=== PATIENT | male | born 1975 | race Native Hawaiian/Other Pacific Islander ===

== ENCOUNTER 2017-12-31 18:52 | Emergency (ER) | payer OTHER ==
[~2017-12-31] VITALS: Ht 188 cm; Wt 86.2 kg
[2017-12-31 19:00] VITALS: BP 135/81; TEMP 97.3
== END 2017-12-31 19:22 | disposition home or self-care (01) ==
LOC: ED 18:52
DX: K08.89 Other specified disorders of teeth and supporting structures (principal); K02.9 Dental caries, unspecified
CPT/HCPCS: 99281

== ENCOUNTER 2018-10-29 01:52 | Emergency (ER) | payer OTHER ==
[~2018-10-29] VITALS: Ht 188 cm; Wt 86.2 kg
[2018-10-29 02:19] LABS: PLATELET COUNT 456 K/uL (142-355)
[2018-10-29 04:03] LABS: POTASSIUM 3.9 mmol/L (3.6-5.2); SODIUM 136 mmol/L (136-145)
[2018-10-29 11:40] VITALS: BP 109/71; TEMP 98.1
== END 2018-10-29 12:00 | disposition other institution (70) ==
LOC: ED 01:52
PROVIDERS: Internal Medicine
DX: R44.3 Hallucinations, unspecified (principal); F15.10 Other stimulant abuse, uncomplicated
CPT/HCPCS: 80053; 80307; 80320; 80329; 81000; 85027; 93005; 99285

== ENCOUNTER 2019-04-03 11:39 | Emergency (ER) | payer OTHER ==
[~2019-04-03] VITALS: Ht 182.9 cm; Wt 79.4 kg
[2019-04-03 11:45] VITALS: TEMP 97.7
[2019-04-03 12:49] VITALS: BP 155/79
== END 2019-04-03 12:49 | disposition home or self-care (01) ==
LOC: ED 11:39
DX: S71.101A Unspecified open wound, right thigh, initial encounter (principal); L08.9 Local infection of the skin and subcutaneous tissue, unspecified
CPT/HCPCS: 96372; 99283; J0696

== ENCOUNTER 2019-08-22 17:29 | Emergency (ER) | payer OTHER ==
[~2019-08-22] VITALS: Ht 182.9 cm; Wt 77.1 kg
[2019-08-22 21:24] LABS: PLATELET COUNT 398 K/uL (142-355)
[2019-08-22 21:39] LABS: POTASSIUM 3.7 mmol/L (3.6-5.2)
[2019-08-23 02:30] VITALS: BP 119/75; TEMP 98.1
== END 2019-08-23 04:45 | disposition other institution (70) ==
LOC: ED 17:29
PROVIDERS: Family Medicine
DX: R45.851 Suicidal ideations (principal); F20.89 Other schizophrenia; R00.0 Tachycardia, unspecified
CPT/HCPCS: 51702; 80053; 80307; 80320; 80329; 81000; 85027; 93005; 96372; 99285; J1200; J1630; J3486

== ENCOUNTER 2020-03-21 17:54 | Emergency (ER) | payer OTHER ==
[~2020-03-21] VITALS: Ht 182.9 cm; Wt 74.8 kg
[2020-03-21 18:38] LABS: PLATELET COUNT 534 K/uL (142-355)
[2020-03-21 21:19] VITALS: TEMP 98.1
[2020-03-21 21:25] VITALS: BP 116/84
== END 2020-03-21 21:19 | disposition home or self-care (01) ==
LOC: ED 17:54
PROVIDERS: Hospitalist
DX: S05.01XA Injury of conjunctiva and corneal abrasion without foreign body, right eye, initial encounter (principal); I47.1 Supraventricular tachycardia; F15.10 Other stimulant abuse, uncomplicated
CPT/HCPCS: 36415; 80048; 80307; 80320; 81000; 82550; 84484; 85027; 85379; 93005; 96360; 96375; 96376; 99284; J3490

== ENCOUNTER 2020-05-20 22:08 | Emergency (ER) | payer OTHER ==
[~2020-05-20] VITALS: Ht 182.9 cm; Wt 74.8 kg
[2020-05-20 22:53] LABS: PLATELET COUNT 501 K/uL (142-355)
[2020-05-20 23:03] LABS: PARTIAL THROMBOPLASTIN TIME 25.9 SECONDS (24.5-33.6)
[2020-05-21 01:34] VITALS: BP 120/85; TEMP 98.4
== END 2020-05-21 01:34 | disposition home or self-care (01) ==
LOC: ED 22:08
PROVIDERS: Hospitalist
DX: R10.13 Epigastric pain (principal); K52.89 Other specified noninfective gastroenteritis and colitis; R11.2 Nausea with vomiting, unspecified
CPT/HCPCS: 36415; 80053; 80307; 80320; 82150; 82550; 83690; 84484; 85027; 85610; 85730; 93005; 96360; 96365; 96375; 99284; J1170; J1885; J2405; J3490; Q9963

== ENCOUNTER 2020-05-21 03:40 | Emergency (ER) | payer OTHER ==
[~2020-05-21] VITALS: Ht 182.9 cm; Wt 74.8 kg
[2020-05-21 04:10] VITALS: BP 102/76; TEMP 98.4
== END 2020-05-21 04:10 | disposition home or self-care (01) ==
LOC: ED 03:40
DX: K52.89 Other specified noninfective gastroenteritis and colitis (principal); R10.84 Generalized abdominal pain; R11.2 Nausea with vomiting, unspecified

== ENCOUNTER 2020-06-07 15:43 | Inpatient (IN) | payer OTHER ==
[~2020-06-07] VITALS: Ht 182.9 cm; Wt 82.7 kg
[2020-06-07 15:50] VITALS: BP 117/79; TEMP 98.2
[2020-06-07 16:31] LABS: PLATELET COUNT 459 K/uL (142-355)
[2020-06-07 16:39] VITALS: BP 114/93
[2020-06-07 16:46] LABS: POTASSIUM 4.6 mmol/L (3.6-5.2)
[2020-06-07 17:24] LABS: PARTIAL THROMBOPLASTIN TIME 25.8 SECONDS (24.5-33.6)
[2020-06-07 17:34] VITALS: BP 121/90
[2020-06-07 18:21] VITALS: BP 114/83
[2020-06-07 18:56] VITALS: BP 92/74
[2020-06-07 21:30] VITALS: BP 109/71; TEMP 97.8; Ht 182.9 cm; Wt 82.7 kg
[2020-06-08] VITALS: BP 95/64; TEMP 97.9
[2020-06-08 04:00] VITALS: BP 119/81; TEMP 97.1
[2020-06-08 07:22] VITALS: BP 115/97; TEMP 96.9
[2020-06-08 07:44] LABS: PLATELET COUNT 395 K/uL (142-355)
[2020-06-08 08:08] LABS: POTASSIUM 4.9 mmol/L (3.6-5.2)
[2020-06-08 12:00] VITALS: BP 125/96; TEMP 96.4
[2020-06-08 16:00] VITALS: BP 127/95; TEMP 96.9
== END 2020-06-08 22:15 | disposition short-term general hospital (02) | DRG 187 ==
LOC: ED 15:43 → MED/SURG 20:00 → ICU 06-08 20:04 → UNDODEPER 06-08 20:50 → ICU 06-08 22:15
PROVIDERS: Emergency Medicine Emergency Medical Services; ADMIT Internal Medicine Endocrinology, Diabetes & Metabolism; ATTEND Internal Medicine Endocrinology, Diabetes & Metabolism
DX: J90 Pleural effusion, not elsewhere classified (principal); R18.8 Other ascites; J98.11 Atelectasis; J43.9 Emphysema, unspecified; R91.1 Solitary pulmonary nodule; D72.828 Other elevated white blood cell count; Z72.0 Tobacco use; F15.10 Other stimulant abuse, uncomplicated; I11.9 Hypertensive heart disease without heart failure
CPT/HCPCS: 36415; 36600; 80053; 80074; 80307; 82550; 82805; 83880; 84484; 85027; 85379; 85610; 85730; 87040; 87502; 87635; 93005; 94664; 94760; 96365; 96366; 96372; 96375; 99284; J0282; J0696; J1644; J1885; J1940; J2270; Q9963; U0003

== ENCOUNTER 2020-07-06 22:22 | Emergency (ER) | payer OTHER ==
[~2020-07-06] VITALS: Ht 182.9 cm; Wt 82.6 kg
[2020-07-06 23:51] LABS: POTASSIUM 3.8 mmol/L (3.6-5.2)
[2020-07-06 23:58] LABS: PLATELET COUNT 392 K/uL (142-355)
[2020-07-07 01:28] VITALS: BP 106/62; TEMP 98.6
== END 2020-07-07 01:28 | disposition home or self-care (01) ==
LOC: ED 22:22
PROVIDERS: Emergency Medicine Emergency Medical Services
DX: E86.0 Dehydration (principal); R19.7 Diarrhea, unspecified
CPT/HCPCS: 36415; 80053; 82272; 83630; 83735; 85027; 87324; 87449; 96360; 99284

== ENCOUNTER 2020-12-27 16:27 | Emergency (ER) | payer OTHER ==
[~2020-12-27] VITALS: Ht 182.9 cm; Wt 81.6 kg
[2020-12-27 16:27] VITALS: BP 162/97; TEMP 97.9
== END 2020-12-27 17:14 | disposition home or self-care (01) ==
LOC: ED 16:27
DX: F41.8 Other specified anxiety disorders (principal); F31.89 Other bipolar disorder; I10 Essential (primary) hypertension; F17.210 Nicotine dependence, cigarettes, uncomplicated
CPT/HCPCS: 93005; 99282; 99283

== ENCOUNTER 2022-05-11 11:29 | Emergency (ER) | payer OTHER ==
[~2022-05-11] VITALS: Ht 182.9 cm; Wt 104.8 kg
[2022-05-11 14:13] LABS: PLATELET COUNT 502 K/uL (142-355)
[2022-05-11 14:14] LABS: POTASSIUM 4.7 mmol/L (3.6-5.2)
[2022-05-11 17:11] VITALS: BP 120/72; TEMP 98.3
== END 2022-05-11 17:11 | disposition home or self-care (01) ==
LOC: ED 11:29
PROVIDERS: Emergency Medicine
PROC: 0T9B70Z Drainage of Bladder with Drainage Device, Via Natural or Artificial Opening (ICD-10-PCS; principal; 2022-05-11)
DX: R60.0 Localized edema (principal); I50.9 Heart failure, unspecified; R39.11 Hesitancy of micturition
CPT/HCPCS: 51702; 80053; 83880; 85027; 93005; 96374; 99284; J1940